=== PATIENT | female | born 1950 | race Caucasian/White ===

== ENCOUNTER 2019-12-04 07:40 | Day surgery (SDC) | payer MEDICARE, SELFPAY ==
[2019-11-28 09:45] VITALS: BMI 28.3
--- NOTE | 2019-11-29 14:48 | P.CONAN_ITS ---
Documented by User: Aimee Breen 11/29/19 14:51 HPI - Anesthesia Eval Consult details Narrative: 69yo F for blepharoplasty PCP Cleared 11/16/19 s/p cataract with MAC 03/2019 PMFSH Past Medical History Medical History Bipolar 1 disorder Cancer Elevated cholesterol HTN (hypertension) Hx of radiation therapy Prophylactic antibiotic Thyroid disease Surgical History Surgical History H/O cataract extraction H/O thyroidectomy History of lumpectomy of left breast Hx of total knee replacement Social History Social History Smoking Status: Never smoker Use of substances other than those prescribed or required for medical reasons: No Advance Directives Information Provided: No Recently lost weight without trying: No Meds Allergies Allergy/AdvReac Type Severity Reaction Status Date / Time No Known Allergies Allergy Verified 11/28/19 09:51 Home Medications Medication Instructions Recorded Confirmed Type atorvastatin 20 mg PO BEDTIME 11/28/19 11/28/19 History duloxetine 60 mg PO DAILY 11/28/19 11/28/19 History hydrochlorothiazide 25 mg PO DAILY 11/28/19 11/28/19 History levothyroxine 100 mcg PO DAILY 11/28/19 11/28/19 History lisinopril 20 mg PO DAILY 11/28/19 11/28/19 History Exam Exam Date and Time: November 29, 2019 1448 Height,Weight and Vital Signs: Height 5 ft 1 in Weight 68.039 kg Assessment and Plan Assessment Anesthesia Assessment: Chart Reviewed Documented by User: Jessy Carvalho 12/04/19 11:41 PMFSH Past Medical History Medical History Bipolar 1 disorder Cancer Elevated cholesterol HTN (hypertension) Hx of radiation therapy Prophylactic antibiotic Thyroid disease Surgical History Surgical History H/O cataract extraction H/O thyroidectomy History of lumpectomy of left breast Hx of total knee replacement Social History Social History Smoking Status: Never smoker Use of substances other than those prescribed or required for medical reasons: No Advance Directives Information Provided: No Recently lost weight without trying: No Meds Allergies Allergy/AdvReac Type Severity Reaction Status Date / Time No Known Allergies Allergy Verified 11/28/19 09:51 Home Medications Medication Instructions Recorded Confirmed Type atorvastatin 20 mg PO BEDTIME 11/28/19 11/28/19 History duloxetine 60 mg PO DAILY 11/28/19 11/28/19 History hydrochlorothiazide 25 mg PO DAILY 11/28/19 11/28/19 History levothyroxine 100 mcg PO DAILY 11/28/19 11/28/19 History lisinopril 20 mg PO DAILY 11/28/19 11/28/19 History Exam Airway Mallampati Class: II TM Dist: >3cm Neck ROM: Full Partial: Upper Heart: RRR Lungs: CTA BL Assessment and Plan Assessment Anesthesia Assessment: Anesthesia Plan Discussed and Chart Reviewed Final Anesthetic Review NPO: Yes ASA Class: II Final Preanesthetic Review: Meds/Itzel Chart Reviewed and Consent Obtai nhi/Reviewed Patient Risk: Intermediate Procedure Risk: Intermediate Anesthetic Plan Anesthetic Plan: MAC: Disposition: Standard PACU
--- NOTE | 2019-12-01 07:41 | MHC.SHP ---
Pre-Procedural Eval Section A The patient is an INPATIENT: No The History & Physical has been completed within 30 days and I have reviewed it.: Yes Section B Chief Complaint: Bilateral Dematochalasis upper Lids Allergies: Allergies Allergy/AdvReac Type Severity Reaction Status Date / Time No Known Allergies Allergy Verified 11/28/19 09:51 Plan Diagnosis/Plan: Unchanged Patient has been examined and remains a candidate for the planned procedure
[2019-12-04 11:12] VITALS: BP 152/54; PULSE 78; RESP 18; TEMP 36.7; O2SAT 96
[2019-12-04] MEDS: Lactated Ringers 1,000 ML 100 ML IVCONT (11:14)
--- NOTE | 2019-12-04 14:21 | P.PCN_ITS ---
Ophthalmology Procedure Procedure Ophthalmology Viscoelastic: Not Applicable Ophthalmology Lenses: Not Applicable Procedure Notes: PREOPERATIVE DIAGNOSIS: Decreased visual field secondary to dermatochalasia POSTOPERATIVE DIAGNOSIS: Same PROCEDURE: Bilateral Blepharoplasty, upper eyelids SURGEON: Carl Lugo M.D. ANESTHESIA: Local with sedation ESTIMATED BLOOD LOSS: None COMPLICATIONS: None After obtaining informed consent, the patient was brought to the operating room and placed in supine position. After adequate sedation per Anesthesia, the eyes were prepped and draped in the usual sterile fashion. Attention was directed to the right eye where a double pinch test was completed to assure excess tissue was not removed from the upper lid. The margin was marked at the proposed incision sites. The left eye was done in a similar fashion. 2% Lidocaine with epinephrine was then instilled subcutaneously along the margin of the pre-marked skin incisions. #15 scalpel blade was then utilized to create the incisions. Using a combination of sharp and blunt dissection with Sherice scissors, the epidermis was removed. Hemostasis was achieved with cautery. 6-0 plain suture was then utilized to close the incision site. Attention was directed to the left upper lid where subcutaneous 2% with Epinephrine Lidocaine was instilled along the pre-marked areas. A #15 scalpel blade was then utilized to create the incisions followed by sharp and blunt dissection with Sherice scissors to remove the overlying epidermis. Hemostasis was achieved with cautery, followed by closure with 6-0 plain suture. The patient tolerated the procedure well. The patient will be followed up in the a.m. Topica l antibiotic ointment was instilled over the incision sites and ice as tolerated for 48 hours.
--- NOTE | 2019-12-04 16:17 | W.PM.OPN ---
Operative Note Operative Note Narrative: The patient had an ophthalmology?procedure on 12/04/19.? The procedure template fed into the wrong report. Please see ECT progress note 12/04/19 note under neurology section entitled for full ophthalmology procedure note.? The information contained within that report is otherwise complete and accurate.? ?The patient did not have ECT on this date.?
== END 2019-12-04 15:00 | disposition home or self-care (01) ==
PROVIDERS: Ophthalmology; PCP Internal Medicine; Visit Provider Anesthesiology
PROC: (CPT 15823; principal; 2019-12-04 12:00)
DX: H02.834 Dermatochalasis of left upper eyelid (principal); H02.831 Dermatochalasis of right upper eyelid; H54.7 Unspecified visual loss; I10 Essential (primary) hypertension; F31.9 Bipolar disorder, unspecified; Z79.899 Other long term (current) drug therapy
CPT/HCPCS: 15823; J2250; J3010